=== PATIENT | female | born 1970 | race Caucasian/White ===

== ENCOUNTER → 2024-04-17 11:59 | Outpatient (REF) | payer OTHER, SELFPAY | LOC: HWWDC 11:59 | PROVIDERS: ATTENDING PHYSICIAN Physician Assistant Medical | DX: Z12.31 Encounter for screening mammogram for malignant neoplasm of breast (principal) | CPT/HCPCS: 77063; 77067 ==

== ENCOUNTER → 2024-10-02 10:04 | Outpatient (REF) | payer OTHER, SELFPAY | LOC: WDC 10:04 | PROVIDERS: ATTENDING PHYSICIAN Physician Assistant Medical | DX: R92.2 Inconclusive mammogram (principal) | CPT/HCPCS: 76641 ==

== ENCOUNTER → 2025-04-28 14:04 | Outpatient (REF) | payer OTHER, SELFPAY | LOC: WDC 14:04 | PROVIDERS: ATTENDING PHYSICIAN Obstetrics & Gynecology Gynecology; FAMILY PHYSICIAN Physician Assistant Medical | DX: Z12.31 Encounter for screening mammogram for malignant neoplasm of breast (principal); Z12.39 Encounter for other screening for malignant neoplasm of breast; R92.8 Other abnormal and inconclusive findings on diagnostic imaging of breast | CPT/HCPCS: 76642; 77063; 77067 ==